=== PATIENT | female | born 1945 | race Caucasian/White ===

== ENCOUNTER 2019-03-20 00:59 | Inpatient (IN) | payer MEDICARE, MEDICAID ==
[2019-03-20] VITALS (8 sets, daily range): BP systolic 112–156; BP diastolic 49–86
[~2019-03-20] VITALS: Ht 160 cm; Wt 130.2 kg
[2019-03-20] MEDS: ALBUTEROL (0.083%) 2.5MG/3ML NEB HHN SCH ×3 (01:15→01:45)
[2019-03-20] MEDS ORDERED: METHYLPREDNISOLONE SOD SUCC 125 MG/2 ML VIAL IV STA (01:20)
[2019-03-20] MEDS ORDERED: ONDANSETRON HCL 4MG/2ML INJ IV STA (01:20)
[2019-03-20] MEDS ORDERED: IPRATROPIUM BROMIDE (0.02%) 0.5MG/2.5ML NEB HHN STA (01:20)
[2019-03-20 02:29] LABS: CHLORIDE 98 mEq/L (98-107)
[2019-03-20 03:10] LABS: BG BASE EXCESS 1.9 mmol/L (-2.0-2.0); BG BILEVEL POS AIRWAY PRESSURE 18/5; BG CARBOXYHEMOGLOBIN 0.7 % (0.5-1.5); BG DEOXYHEMOGLOBIN 3.8 % (0.0-5.0); BG FRACTION INSPIRED OXYGEN 50; BG METHEMOGLOBIN 0.4 % (0.0-1.5); BG OXYGEN SATURATION 96.2 % (92.0-98.5); BG OXYHEMOGLOBIN 95.1 % (94.0-97.0); BG PCO2 55.6 mmHg (35.0-45.0); BG PH 7.335 (7.350-7.450); BG PO2 87.6 mmHg (75.0-100.0); BG SAMPLE SITE RIGHT RADIAL; BG TOTAL HEMOGLOBIN 14.3 g/dL (12.0-18.0); BG VENT MODE MASK - BIPAP; BG VENT RATE 18 set
[2019-03-20 03:10] LABS: BASOPHILS % 0.5 % (0.0-2.0); EOSINOPHILS % 1.5 % (0.0-5.0); HEMATOCRIT. 40.9 % (36.0-48.0); HEMOGLOBIN. 13.6 g/dL (12.0-16.0); LYMPHOCYTES % 7.6 % (20.0-50.0); MEAN CORPUSCULAR HEMOGLOBIN 30.7 pg (28.0-32.0); MEAN CORPUSCULAR VOLUME 92.2 fL (81.0-99.0); MEAN PLATELET VOLUME 7.5 fl (7.4-10.4); MONOCYTES % 8.3 % (2.0-8.0); NEUTROPHILS % 82.1 % (40.0-76.0); PLATELET 267 x1000/uL (130-400); RED BLOOD CELL COUNT 4.43 mill/uL (4.2-5.4)
[2019-03-20] MEDS ORDERED: MORPHINE SULFATE 4 MG/ML CPJ (NOT FOR IM USE) IV ONE (05:30)
[2019-03-20] MEDS ORDERED: DOCUSATE SODIUM 100MG CAPSULE PO PRN (06:45)
[2019-03-20] MEDS ORDERED: CLONIDINE 0.1MG TABLET PO PRN (06:45)
[2019-03-20] MEDS ORDERED: LEVOFLOXACIN 500MG PREMIX 100 ML IV SCH (06:45)
[2019-03-20] MEDS ORDERED: ENOXAPARIN 40MG/0.4ML SYR SUBCUT SCH (06:45)
[2019-03-20] MEDS ORDERED: HYDROCODONE/ACETAMINOPHEN 5/325MG TABLET PO PRN (06:45)
[2019-03-20] MEDS ORDERED: GUAIFENESIN 200MG/10ML SUGAR FREE UDC PO PRN (06:45)
[2019-03-20] MEDS: LORAZEPAM 2MG/ML CPJ IV PRN ×4 (07:31→21:24)
[2019-03-20] MEDS: ENOXAPARIN 40MG/0.4ML SYR SUBCUT SCH ×2 (11:18→21:24)
[2019-03-20] MEDS: AMLODIPINE 10MG TABLET PO SCH (11:18)
[2019-03-20] MEDS: IPRATROPIUM/ALBUTEROL 0.5-3(2.5)MG/3ML NEB INH SCH ×3 (11:53→20:08)
[2019-03-20] MEDS: FUROSEMIDE 20MG/2ML VIAL IVP SCH (13:26)
[2019-03-20] MEDS: LEVOFLOXACIN 500MG PREMIX 100 ML IV SCH (13:27)
[2019-03-20 13:30] LABS: BG BASE EXCESS 3.3 mmol/L (-2.0-2.0); BG BILEVEL POS AIRWAY PRESSURE 18/5; BG CARBOXYHEMOGLOBIN 0.9 % (0.5-1.5); BG DEOXYHEMOGLOBIN 2.4 % (0.0-5.0); BG FRACTION INSPIRED OXYGEN 50; BG HCO3 ACT 30.6 mmol/L (22.0-26.0); BG METHEMOGLOBIN 0.4 % (0.0-1.5); BG OXYGEN SATURATION 97.6 % (92.0-98.5); BG OXYHEMOGLOBIN 96.3 % (94.0-97.0); BG PCO2 58.5 mmHg (35.0-45.0); BG PH 7.337 (7.350-7.450); BG PO2 97.8 mmHg (75.0-100.0); BG SAMPLE SITE RIGHT RADIAL; BG TOTAL HEMOGLOBIN 14.1 g/dL (12.0-18.0); BG VENT MODE MASK - BIPAP; BG VENT RATE 18 set
[2019-03-20] MEDS: METHYLPREDNISOLONE SOD SUCC 40 MG/ML VIAL IV SCH ×2 (16:16→21:24)
[2019-03-20] MEDS: MORPHINE SULFATE 2 MG/ML CPJ (NOT FOR IM USE) IV PRN (19:20)
[2019-03-20] MEDS: BUDESONIDE 0.5MG/2ML NEB HHN SCH (20:08)
[2019-03-21] VITALS (7 sets, daily range): BP systolic 108–137; BP diastolic 55–82
[2019-03-21] MEDS: IPRATROPIUM/ALBUTEROL 0.5-3(2.5)MG/3ML NEB INH PRN ×2 (00:39→17:01)
[2019-03-21 07:29] LABS: BASOPHILS % 0.1 % (0.0-2.0); HEMATOCRIT. 37.5 % (36.0-48.0); HEMOGLOBIN. 13.2 g/dL (12.0-16.0); LYMPHOCYTES % 7.5 % (20.0-50.0); MEAN CORPUSCULAR HEMOGLOBIN 32.1 pg (28.0-32.0); MEAN CORPUSCULAR VOLUME 91.4 fL (81.0-99.0); MEAN PLATELET VOLUME 7.4 fl (7.4-10.4); MONOCYTES % 4.8 % (2.0-8.0); NEUTROPHILS % 87.6 % (40.0-76.0); PLATELET 254 x1000/uL (130-400); RED CELL DISTRIBUTION WIDTH 13.9 % (11.6-14.6)
[2019-03-21 07:53] LABS: CHLORIDE 99 mEq/L (98-107)
[2019-03-21 08:03] LABS: HDL CHOLESTEROL 51 mg/dL (40-59)
[2019-03-21 08:04] LABS: LDL CHOLESTEROL 106 mg/dL (5-100)
[2019-03-21] MEDS: IPRATROPIUM/ALBUTEROL 0.5-3(2.5)MG/3ML NEB INH SCH ×3 (08:06→20:33)
[2019-03-21] MEDS: BUDESONIDE 0.5MG/2ML NEB HHN SCH ×2 (08:18→20:33)
[2019-03-21] MEDS: FUROSEMIDE 20MG/2ML VIAL IVP SCH (08:22)
[2019-03-21] MEDS: ENOXAPARIN 40MG/0.4ML SYR SUBCUT SCH ×2 (08:22→21:12)
[2019-03-21] MEDS: AMLODIPINE 10MG TABLET PO SCH (08:23)
[2019-03-21 11:16] LABS: T4 FREE 0.76 ng/dL (0.76-1.46)
[2019-03-21] MEDS: LEVOFLOXACIN 500MG PREMIX 100 ML IV SCH (11:39)
[2019-03-21] MEDS: LORAZEPAM 2MG/ML CPJ IV PRN ×2 (11:40→21:16)
[2019-03-21] MEDS: METHYLPREDNISOLONE SOD SUCC 40 MG/ML VIAL IV SCH ×2 (14:00→21:12)
[2019-03-21 18:34] LABS: CREATINE KINASE MB FRACTION 2.5 ng/mL (0.5-3.6)
[2019-03-22 00:14] LABS: CREATINE KINASE MB FRACTION 1.8 ng/mL (0.5-3.6)
[2019-03-22] MEDS: IPRATROPIUM/ALBUTEROL 0.5-3(2.5)MG/3ML NEB INH SCH ×2 (01:34→08:44)
[2019-03-22] MEDS: METHYLPREDNISOLONE SOD SUCC 40 MG/ML VIAL IV SCH ×3 (05:36→23:34)
[2019-03-22 06:34] LABS: CREATINE KINASE MB FRACTION 1.9 ng/mL (0.5-3.6)
[2019-03-22 08:00] VITALS: BP 141/74
[2019-03-22] MEDS: ENOXAPARIN 40MG/0.4ML SYR SUBCUT SCH ×2 (08:34→21:53)
[2019-03-22] MEDS: LORAZEPAM 2MG/ML CPJ IV PRN ×2 (08:35→15:36)
[2019-03-22] MEDS: FUROSEMIDE 20MG/2ML VIAL IVP SCH (08:35)
[2019-03-22] MEDS: AMLODIPINE 10MG TABLET PO SCH (08:41)
[2019-03-22] MEDS: BUDESONIDE 0.5MG/2ML NEB HHN SCH ×2 (08:44→21:26)
[2019-03-22 09:49] VITALS: BP 125/75
[2019-03-22 10:25] LABS: BG BASE EXCESS 6.8 mmol/L (-2.0-2.0); BG BILEVEL POS AIRWAY PRESSURE 15/5; BG CARBOXYHEMOGLOBIN 0.3 % (0.5-1.5); BG DEOXYHEMOGLOBIN 3.1 % (0.0-5.0); BG FRACTION INSPIRED OXYGEN 45; BG HCO3 ACT 34.7 mmol/L (22.0-26.0); BG METHEMOGLOBIN 0.2 % (0.0-1.5); BG OXYGEN SATURATION 96.9 % (92.0-98.5); BG OXYHEMOGLOBIN 96.4 % (94.0-97.0); BG PCO2 64.2 mmHg (35.0-45.0); BG PH 7.351 (7.350-7.450); BG PO2 92.8 mmHg (75.0-100.0); BG SAMPLE SITE RIGHT RADIAL; BG TOTAL HEMOGLOBIN 14.4 g/dL (12.0-18.0); BG VENT MODE MASK - BIPAP; BG VENT RATE 16 set
[2019-03-22] MEDS: LEVOFLOXACIN 500MG PREMIX 100 ML IV SCH (10:34)
[2019-03-22 12:00] VITALS: BP 123/59
[2019-03-22] MEDS: MORPHINE SULFATE 2 MG/ML CPJ (NOT FOR IM USE) IV PRN (12:08)
[2019-03-22 14:00] VITALS: BP 142/78
[2019-03-22] MEDS ORDERED: IPRATROPIUM/ALBUTEROL 0.5-3(2.5)MG/3ML NEB INH SCH (14:00)
[2019-03-22] MEDS: IPRATROPIUM/ALBUTEROL 0.5-3(2.5)MG/3ML NEB HHN SCH ×2 (15:23→21:26)
[2019-03-22 16:00] VITALS: BP 114/71
[2019-03-22 17:41] VITALS: BP 123/73
[2019-03-23] VITALS (8 sets, daily range): BP systolic 95–155; BP diastolic 54–80
[2019-03-23] MEDS: IPRATROPIUM/ALBUTEROL 0.5-3(2.5)MG/3ML NEB HHN SCH ×6 (00:35→21:48)
[2019-03-23] MEDS: MORPHINE SULFATE 2 MG/ML CPJ (NOT FOR IM USE) IV PRN ×2 (01:06→19:32)
[2019-03-23] MEDS: METHYLPREDNISOLONE SOD SUCC 40 MG/ML VIAL IV SCH ×3 (07:45→21:53)
[2019-03-23] MEDS: BUDESONIDE 0.5MG/2ML NEB HHN SCH ×2 (08:27→21:48)
[2019-03-23] MEDS: ENOXAPARIN 40MG/0.4ML SYR SUBCUT SCH ×2 (09:35→21:00)
[2019-03-23] MEDS: LORAZEPAM 2MG/ML CPJ IV PRN ×3 (09:36→22:16)
[2019-03-23] MEDS: AMLODIPINE 10MG TABLET PO SCH (09:36)
[2019-03-23] MEDS: FUROSEMIDE 20MG/2ML VIAL IVP SCH (09:36)
[2019-03-23] MEDS ORDERED: LIDOCAINE HCL 1% 20ML VIAL (Pyxis) INJ ONE (10:49)
[2019-03-23] MEDS: LEVOFLOXACIN 500MG TABLET PO SCH (12:11)
[2019-03-23 17:03] LABS: BG BASE EXCESS 11.4 mmol/L (-2.0-2.0); BG BILEVEL POS AIRWAY PRESSURE 15/5; BG CARBOXYHEMOGLOBIN 0.8 % (0.5-1.5); BG DEOXYHEMOGLOBIN 3.2 % (0.0-5.0); BG FRACTION INSPIRED OXYGEN 40; BG METHEMOGLOBIN 0.3 % (0.0-1.5); BG OXYGEN SATURATION 96.8 % (92.0-98.5); BG OXYHEMOGLOBIN 95.7 % (94.0-97.0); BG PCO2 64.6 mmHg (35.0-45.0); BG PH 7.399 (7.350-7.450); BG SAMPLE SITE RIGHT RADIAL; BG TOTAL HEMOGLOBIN 14.3 g/dL (12.0-18.0); BG VENT MODE MASK - BIPAP; BG VENT RATE 16 set
[2019-03-23 19:28] LABS: CHLORIDE 95 mEq/L (98-107)
[2019-03-23 19:34] LABS: BASOPHILS % 0.4 % (0.0-2.0); HEMOGLOBIN. 13.6 g/dL (12.0-16.0); LYMPHOCYTES % 9.7 % (20.0-50.0); MEAN CORPUSCULAR HEMOGLOBIN 31.4 pg (28.0-32.0); MEAN CORPUSCULAR VOLUME 92.4 fL (81.0-99.0); MEAN PLATELET VOLUME 7.7 fl (7.4-10.4); MONOCYTES % 9.7 % (2.0-8.0); NEUTROPHILS % 80.2 % (40.0-76.0); PLATELET 238 x1000/uL (130-400); RED BLOOD CELL COUNT 4.33 mill/uL (4.2-5.4); RED CELL DISTRIBUTION WIDTH 13.6 % (11.6-14.6)
[2019-03-23] MEDS ORDERED: KCL 20MEQ/100ML PREMIX 100 ML IV NR (23:30)
[2019-03-24] VITALS (12 sets, daily range): BP systolic 109–130; BP diastolic 58–75
[2019-03-24] MEDS: IPRATROPIUM/ALBUTEROL 0.5-3(2.5)MG/3ML NEB HHN SCH ×6 (00:26→21:33)
[2019-03-24] MEDS: MORPHINE SULFATE 2 MG/ML CPJ (NOT FOR IM USE) IV PRN ×2 (05:37→20:35)
[2019-03-24] MEDS: METHYLPREDNISOLONE SOD SUCC 40 MG/ML VIAL IV SCH ×3 (05:37→21:05)
[2019-03-24] MEDS: ENOXAPARIN 40MG/0.4ML SYR SUBCUT SCH ×2 (08:00→20:35)
[2019-03-24] MEDS: FUROSEMIDE 20MG/2ML VIAL IVP SCH (08:01)
[2019-03-24] MEDS: AMLODIPINE 10MG TABLET PO SCH (08:01)
[2019-03-24] MEDS: LORAZEPAM 2MG/ML CPJ IV PRN ×2 (09:24→14:28)
[2019-03-24] MEDS: LEVOFLOXACIN 500MG TABLET PO SCH (12:40)
[2019-03-24 17:23] LABS: HEMATOCRIT. 41.5 % (36.0-48.0); HEMOGLOBIN. 14.2 g/dL (12.0-16.0); MEAN CORPUSCULAR HEMOGLOBIN 31.7 pg (28.0-32.0); MEAN CORPUSCULAR VOLUME 92.7 fL (81.0-99.0); MEAN PLATELET VOLUME 7.6 fl (7.4-10.4); PLATELET 256 x1000/uL (130-400); RED BLOOD CELL COUNT 4.48 mill/uL (4.2-5.4); RED CELL DISTRIBUTION WIDTH 13.6 % (11.6-14.6)
[2019-03-24 17:30] LABS: CHLORIDE 95 mEq/L (98-107)
[2019-03-24] MEDS ORDERED: KCL 20MEQ/100ML PREMIX 100 ML IV NR (18:45)
[2019-03-24 18:58] LABS: PLATELET ESTIMATE NORMAL
[2019-03-24] MEDS: ONDANSETRON HCL 4MG/2ML INJ IV PRN (23:00)
[2019-03-25] VITALS (11 sets, daily range): BP systolic 104–131; BP diastolic 52–88
[2019-03-25] MEDS: MORPHINE SULFATE 2 MG/ML CPJ (NOT FOR IM USE) IV PRN ×2 (01:23→12:32)
[2019-03-25] MEDS: MAGNESIUM/ALUMINUM HYDROXIDE/SIMETHICONE 30ML UDC PO PRN ×2 (01:52→21:22)
[2019-03-25] MEDS: IPRATROPIUM/ALBUTEROL 0.5-3(2.5)MG/3ML NEB HHN SCH ×7 (02:27→23:53)
[2019-03-25] MEDS: METHYLPREDNISOLONE SOD SUCC 40 MG/ML VIAL IV SCH ×3 (05:01→21:22)
[2019-03-25] MEDS: ONDANSETRON HCL 4MG/2ML INJ IV PRN ×3 (05:01→21:22)
[2019-03-25] MEDS: LORAZEPAM 2MG/ML CPJ IV PRN ×3 (08:34→22:57)
[2019-03-25] MEDS: FUROSEMIDE 20MG/2ML VIAL IVP SCH (08:34)
[2019-03-25] MEDS: AMLODIPINE 10MG TABLET PO SCH (08:35)
[2019-03-25] MEDS: ENOXAPARIN 40MG/0.4ML SYR SUBCUT SCH ×2 (08:35→21:22)
[2019-03-25 09:22] LABS: BG BASE EXCESS 10.6 mmol/L (-2.0-2.0); BG CARBOXYHEMOGLOBIN 0.3 % (0.5-1.5); BG DEOXYHEMOGLOBIN 4.9 % (0.0-5.0); BG FRACTION INSPIRED OXYGEN 36; BG HCO3 ACT 38.2 mmol/L (22.0-26.0); BG METHEMOGLOBIN 0.2 % (0.0-1.5); BG OXYGEN SATURATION 95.1 % (92.0-98.5); BG OXYHEMOGLOBIN 94.6 % (94.0-97.0); BG PCO2 62.4 mmHg (35.0-45.0); BG PH 7.405 (7.350-7.450); BG PO2 73.4 mmHg (75.0-100.0); BG SAMPLE SITE RIGHT RADIAL; BG TOTAL HEMOGLOBIN 15.7 g/dL (12.0-18.0); BG VENT MODE NASAL CANNULA
[2019-03-25] MEDS: LEVOFLOXACIN 500MG TABLET PO SCH (12:35)
[2019-03-25] MEDS: ACETAMINOPHEN 325MG TABLET PO PRN (21:35)
[2019-03-26] VITALS (12 sets, daily range): BP systolic 84–119; BP diastolic 57–77
[2019-03-26] MEDS: IPRATROPIUM/ALBUTEROL 0.5-3(2.5)MG/3ML NEB HHN SCH ×5 (03:36→20:55)
[2019-03-26] MEDS: METHYLPREDNISOLONE SOD SUCC 40 MG/ML VIAL IV SCH (08:43)
[2019-03-26] MEDS: AMLODIPINE 10MG TABLET PO SCH (08:43)
[2019-03-26] MEDS: FUROSEMIDE 20MG/2ML VIAL IVP SCH (08:43)
[2019-03-26] MEDS: ENOXAPARIN 40MG/0.4ML SYR SUBCUT SCH ×2 (08:45→20:46)
[2019-03-26 09:09] LABS: BG BASE EXCESS 6.7 mmol/L (-2.0-2.0); BG CARBOXYHEMOGLOBIN 0.7 % (0.5-1.5); BG DEOXYHEMOGLOBIN 10.2 % (0.0-5.0); BG FRACTION INSPIRED OXYGEN 21; BG HCO3 ACT 33.7 mmol/L (22.0-26.0); BG METHEMOGLOBIN 0.3 % (0.0-1.5); BG OXYGEN SATURATION 89.7 % (92.0-98.5); BG OXYHEMOGLOBIN 88.8 % (94.0-97.0); BG PCO2 57.2 mmHg (35.0-45.0); BG PH 7.388 (7.350-7.450); BG PO2 57.5 mmHg (75.0-100.0); BG SAMPLE SITE LEFT RADIAL; BG TOTAL HEMOGLOBIN 15.1 g/dL (12.0-18.0); BG VENT MODE ROOM AIR
[2019-03-26 11:04] LABS: HEMATOCRIT. 44.6 % (36.0-48.0); HEMOGLOBIN. 15.1 g/dL (12.0-16.0); MEAN CORPUSCULAR HEMOGLOBIN 31.1 pg (28.0-32.0); MEAN CORPUSCULAR VOLUME 91.7 fL (81.0-99.0); MEAN PLATELET VOLUME 7.2 fl (7.4-10.4); PLATELET 249 x1000/uL (130-400); RED BLOOD CELL COUNT 4.87 mill/uL (4.2-5.4); RED CELL DISTRIBUTION WIDTH 13.6 % (11.6-14.6)
[2019-03-26] MEDS: ACETAMINOPHEN 325MG TABLET PO PRN ×2 (11:29→20:41)
[2019-03-26 11:33] LABS: CHLORIDE 94 mEq/L (98-107)
[2019-03-26] MEDS: LEVOFLOXACIN 500MG TABLET PO SCH (14:03)
[2019-03-26] MEDS: PREDNISONE 20MG TABLET PO SCH (14:03)
[2019-03-26] MEDS: LORAZEPAM 2MG/ML CPJ IV PRN (14:14)
[2019-03-26] MEDS: ONDANSETRON HCL 4MG/2ML INJ IV PRN ×2 (14:14→19:17)
[2019-03-26 15:47] LABS: PLATELET ESTIMATE NORMAL
[2019-03-26] MEDS ORDERED: ATORVASTATIN CALCIUM 20MG TABLET PO SCH (21:00)
[2019-03-27] VITALS: BP 137/86
[2019-03-27] MEDS: IPRATROPIUM/ALBUTEROL 0.5-3(2.5)MG/3ML NEB HHN SCH ×4 (00:43→11:57)
[2019-03-27 02:00] VITALS: BP 140/91
[2019-03-27 04:00] VITALS: BP 126/58
[2019-03-27 06:00] VITALS: BP 123/65
[2019-03-27] MEDS: LORAZEPAM 2MG/ML CPJ IV PRN ×2 (06:50→11:42)
[2019-03-27] MEDS: AMLODIPINE 10MG TABLET PO SCH (09:00)
[2019-03-27] MEDS: PREDNISONE 20MG TABLET PO SCH (09:01)
[2019-03-27] MEDS: FUROSEMIDE 20MG/2ML VIAL IVP SCH (09:01)
[2019-03-27] MEDS: ENOXAPARIN 40MG/0.4ML SYR SUBCUT SCH (09:01)
[2019-03-27] MEDS: LEVOFLOXACIN 500MG TABLET PO SCH (12:16)
[2019-03-27 12:25] VITALS: BP 100/60
== END 2019-03-27 15:25 | DRG 291 ==
LOC: ER 00:59 → 5EST 05:07 → EDBEDREQTM 05:10 → EDBEDREQSVC 05:10 → EDBEDREQ 05:10 → SUPCPDRO 06:37 → ENRESERV 07:11 → 5EST 09:38
PROVIDERS: ADMIT Hospitalist; ATTEND Hospitalist
PROC: 5A09557 Assistance with Respiratory Ventilation, Greater than 96 Consecutive Hours, Continuous Positive Airway Pressure (ICD-10-PCS; 2019-03-20)
PROC: 05HM33Z Insertion of Infusion Device into Right Internal Jugular Vein, Percutaneous Approach (ICD-10-PCS; principal; 2019-03-23)
PROC: B543ZZA Ultrasonography of Right Jugular Veins, Guidance (ICD-10-PCS; 2019-03-23)
PROC: 5A09357 Assistance with Respiratory Ventilation, Less than 24 Consecutive Hours, Continuous Positive Airway Pressure (ICD-10-PCS; 2019-03-27)
DX: I11.0 Hypertensive heart disease with heart failure (principal); J96.22 Acute and chronic respiratory failure with hypercapnia; J44.1 Chronic obstructive pulmonary disease with (acute) exacerbation; E44.1 Mild protein-calorie malnutrition; E66.2 Morbid (severe) obesity with alveolar hypoventilation; E87.2 Acidosis; Z68.43 Body mass index [BMI] 50.0-59.9, adult; I50.41 Acute combined systolic (congestive) and diastolic (congestive) heart failure; E11.9 Type 2 diabetes mellitus without complications; E78.5 Hyperlipidemia, unspecified; F41.9 Anxiety disorder, unspecified; Z82.49 Family history of ischemic heart disease and other diseases of the circulatory system; Z88.8 Allergy status to other drugs, medicaments and biological substances; Z79.899 Other long term (current) drug therapy; Z90.49 Acquired absence of other specified parts of digestive tract; Z87.81 Personal history of (healed) traumatic fracture; Z87.891 Personal history of nicotine dependence
CPT/HCPCS: 36415; 36600; 71045; 71250; 76937; 80048; 80061; 82375; 82550; 82553; 82805; 83036; 83605; 83880; 84439; 84443; 84484; 85379; 93005; 93306; 93970; 94640; 94660; C1725; J1650; J1940; J1956; J2060; J2270; J2405; J2920; J2930; J3480; J3490; J7512; J7611; J7620; J7626

== ENCOUNTER 2019-08-16 13:10 | Inpatient (IN) | payer MEDICARE, MEDICAID ==
[~2019-08-16] VITALS: Ht 157.5 cm; Wt 155.6 kg
[~2019-08-16 13:10] MED LIST: LIDOCAINE HCL/PF 1% 2ML VIAL ONE
[2019-08-16] MEDS ORDERED: ALBUTEROL (0.083%) 2.5MG/3ML NEB HHN ONE (14:15)
[2019-08-16] MEDS ORDERED: DILTIAZEM HCL 5MG/ML 5ML VIAL IV ONE (14:15)
[2019-08-16] MEDS ORDERED: ASPIRIN 81MG TABLET PO ONE (14:15)
[2019-08-16] MEDS ORDERED: DILTIAZEM HCL 5MG/ML 10ML VIAL IV ONE (14:23)
[2019-08-16 14:29] LABS: HEMATOCRIT. 40.4 % (36.0-48.0); HEMOGLOBIN. 13.5 g/dL (12.0-16.0); MEAN CORPUSCULAR HEMOGLOBIN 29.6 pg (28.0-32.0); MEAN CORPUSCULAR VOLUME 88.8 fL (81.0-99.0); MEAN PLATELET VOLUME 7.3 fl (7.4-10.4); PLATELET 248 x1000/uL (130-400); RED BLOOD CELL COUNT 4.55 mill/uL (4.2-5.4); RED CELL DISTRIBUTION WIDTH 15.4 % (11.6-14.6)
[2019-08-16 14:31] LABS: BG CARBOXYHEMOGLOBIN 0.8 % (0.5-1.5); BG DEOXYHEMOGLOBIN 1.5 % (0.0-5.0); BG FRACTION INSPIRED OXYGEN 50; BG HCO3 ACT 34.6 mmol/L (22.0-26.0); BG METHEMOGLOBIN 0.3 % (0.0-1.5); BG OXYGEN SATURATION 98.5 % (92.0-98.5); BG OXYHEMOGLOBIN 97.4 % (94.0-97.0); BG PCO2 61.5 mmHg (35.0-45.0); BG PH 7.368 (7.350-7.450); BG PO2 141.5 mmHg (75.0-100.0); BG SAMPLE SITE RIGHT RADIAL; BG TOTAL HEMOGLOBIN 14.7 g/dL (12.0-18.0)
[2019-08-16 14:36] LABS: CHLORIDE 96 mEq/L (98-107)
[2019-08-16] MEDS ORDERED: METHYLPREDNISOLONE SOD SUCC 125 MG/2 ML VIAL IV ONE (14:45)
[2019-08-16 14:53] LABS: PLATELET ESTIMATE NORMAL
[2019-08-16] MEDS ORDERED: DOCUSATE SODIUM 100MG CAPSULE PO PRN (16:00)
[2019-08-16] MEDS ORDERED: IPRATROPIUM/ALBUTEROL 0.5-3(2.5)MG/3ML NEB NEB PRN (16:00)
[2019-08-16] MEDS ORDERED: IPRATROPIUM/ALBUTEROL 0.5-3(2.5)MG/3ML NEB NEB SCH (16:00)
[2019-08-16] MEDS ORDERED: GUAIFENESIN 200MG/10ML SUGAR FREE UDC PO PRN (16:00)
[2019-08-16] MEDS ORDERED: CLONIDINE 0.1MG TABLET PO PRN (16:00)
[2019-08-16] MEDS ORDERED: DILTIAZEM HCL 5MG/ML 5ML VIAL IV PRN (16:15)
[2019-08-16] MEDS ORDERED: MORPHINE SULFATE 2 MG/ML CPJ (NOT FOR IM USE) IV PRN (16:22)
[2019-08-16] MEDS ORDERED: MORPHINE SULFATE 4 MG/ML CPJ (NOT FOR IM USE) IV PRN (17:00)
[2019-08-16] MEDS ORDERED: METHYLPREDNISOLONE SOD SUCC 125 MG/2 ML VIAL IV NR (17:30)
[2019-08-16] MEDS: ONDANSETRON HCL 4MG/2ML INJ IV PRN (17:35)
[2019-08-16] MEDS: AZITHROMYCIN 500 MG TABLET PO SCH (18:39)
[2019-08-16] MEDS ORDERED: LEVOFLOXACIN 500MG PREMIX 100 ML IV SCH (19:00)
[2019-08-16] MEDS ORDERED: CEFTRIAXONE 1 G PREMIX 50 ML IV SCH (19:00)
[2019-08-16 23:00] VITALS: BP 130/69
[2019-08-16 23:17] VITALS: BP 130/69
[2019-08-16] MEDS: METHYLPREDNISOLONE SOD SUCC 125 MG/2 ML VIAL IV SCH (23:48)
[2019-08-17] VITALS (12 sets, daily range): BP systolic 117–155; BP diastolic 67–105
[2019-08-17] MEDS: IPRATROPIUM/ALBUTEROL 0.5-3(2.5)MG/3ML NEB NEB SCH ×6 (00:15→21:10)
[2019-08-17] MEDS: MORPHINE SULFATE 2 MG/ML CPJ (NOT FOR IM USE) IV PRN ×4 (00:27→19:03)
[2019-08-17] MEDS: ACETYLCYSTEINE 100MG/ML 10% VIAL 4ML INH SCH ×3 (01:12→15:53)
[2019-08-17] MEDS: METHYLPREDNISOLONE SOD SUCC 125 MG/2 ML VIAL IV SCH ×4 (05:36→23:42)
[2019-08-17] MEDS: LEVOFLOXACIN 500MG PREMIX 100 ML IV SCH (05:43)
[2019-08-17 07:13] LABS: HEMATOCRIT. 41.2 % (36.0-48.0); HEMOGLOBIN. 13.3 g/dL (12.0-16.0); MEAN CORPUSCULAR HEMOGLOBIN 28.8 pg (28.0-32.0); MEAN CORPUSCULAR VOLUME 89.1 fL (81.0-99.0); MEAN PLATELET VOLUME 7.8 fl (7.4-10.4); PLATELET 254 x1000/uL (130-400); RED BLOOD CELL COUNT 4.62 mill/uL (4.2-5.4); RED CELL DISTRIBUTION WIDTH 14.8 % (11.6-14.6)
[2019-08-17] MEDS: BUDESONIDE 0.5MG/2ML NEB HHN SCH ×2 (07:47→21:09)
[2019-08-17 08:01] LABS: CHLORIDE 99 mEq/L (98-107)
[2019-08-17 08:12] LABS: LDL CHOLESTEROL 57 mg/dL (5-100)
[2019-08-17 08:13] LABS: HDL CHOLESTEROL 70 mg/dL (40-59)
[2019-08-17] MEDS: ASPIRIN 81MG EC TABLET PO SCH (08:34)
[2019-08-17] MEDS: ENOXAPARIN 40MG/0.4ML SYR SUBCUT SCH ×2 (08:34→20:20)
[2019-08-17] MEDS: AZITHROMYCIN 500 MG TABLET PO SCH (08:34)
[2019-08-17] MEDS ORDERED: TRAZ-251 PO (08:53)
[2019-08-17] MEDS ORDERED: ATOR20TA PO (08:53)
[2019-08-17] MEDS ORDERED: P20 MT (08:53)
[2019-08-17] MEDS ORDERED: LORA-250 PO (08:53)
[2019-08-17] MEDS ORDERED: INSU100V3 SUBCUT (08:53)
[2019-08-17] MEDS ORDERED: HYDR-4001 PO (08:53)
[2019-08-17] MEDS ORDERED: PANT40SU PO (08:53)
[2019-08-17] MEDS ORDERED: DOCU-150 MT (08:53)
[2019-08-17] MEDS ORDERED: AMLO10TA4 PO (08:53)
[2019-08-17] MEDS ORDERED: SERT50TA12 PO (08:53)
[2019-08-17] MEDS ORDERED: LEVO125T8 PO (08:53)
[2019-08-17] MEDS ORDERED: MEMA5TAB7 PO (08:53)
[2019-08-17] MEDS ORDERED: GABA-531 PO (08:53)
[2019-08-17] MEDS ORDERED: LACT10SO7 PO (08:53)
[2019-08-17 10:09] LABS: BG BASE EXCESS 5.8 mmol/L (-2.0-2.0); BG CARBOXYHEMOGLOBIN 0.3 % (0.5-1.5); BG DEOXYHEMOGLOBIN 3.1 % (0.0-5.0); BG FRACTION INSPIRED OXYGEN 40; BG HCO3 ACT 32.1 mmol/L (22.0-26.0); BG METHEMOGLOBIN 0.4 % (0.0-1.5); BG OXYGEN SATURATION 96.9 % (92.0-98.5); BG OXYHEMOGLOBIN 96.2 % (94.0-97.0); BG PCO2 53.4 mmHg (35.0-45.0); BG PH 7.397 (7.350-7.450); BG PO2 88.1 mmHg (75.0-100.0); BG SAMPLE SITE RIGHT RADIAL; BG VENT MODE MASK - BIPAP
[2019-08-17] MEDS: DILTIAZEM HCL 30MG TABLET PO SCH ×2 (18:37→23:43)
[2019-08-17 20:06] LABS: PLATELET ESTIMATE NORMAL
[2019-08-17] MEDS: LORAZEPAM 2MG/ML CPJ IV PRN (20:18)
[2019-08-17] MEDS: ONDANSETRON HCL 4MG/2ML INJ IV PRN (20:29)
[2019-08-17] MEDS: CEFTRIAXONE 1 G PREMIX 50 ML IV SCH (22:06)
[2019-08-18] VITALS (13 sets, daily range): BP systolic 117–144; BP diastolic 51–92
[2019-08-18] MEDS: MORPHINE SULFATE 2 MG/ML CPJ (NOT FOR IM USE) IV PRN ×4 (00:21→17:01)
[2019-08-18] MEDS: ACETYLCYSTEINE 100MG/ML 10% VIAL 4ML INH SCH ×3 (00:49→16:25)
[2019-08-18] MEDS: IPRATROPIUM/ALBUTEROL 0.5-3(2.5)MG/3ML NEB NEB SCH ×5 (00:49→20:35)
[2019-08-18] MEDS: METHYLPREDNISOLONE SOD SUCC 125 MG/2 ML VIAL IV SCH ×3 (05:09→17:00)
[2019-08-18] MEDS: DILTIAZEM HCL 30MG TABLET PO SCH ×3 (05:16→18:32)
[2019-08-18] MEDS: ONDANSETRON HCL 4MG/2ML INJ IV PRN (05:45)
[2019-08-18] MEDS: LORAZEPAM 2MG/ML CPJ IV PRN ×3 (05:45→21:02)
[2019-08-18 06:41] LABS: CHLORIDE 98 mEq/L (98-107)
[2019-08-18] MEDS: BUDESONIDE 0.5MG/2ML NEB HHN SCH ×2 (07:51→20:35)
[2019-08-18] MEDS: ENOXAPARIN 40MG/0.4ML SYR SUBCUT SCH ×2 (08:19→21:01)
[2019-08-18] MEDS: ASPIRIN 81MG EC TABLET PO SCH (08:19)
[2019-08-18] MEDS: LEVOFLOXACIN 500MG PREMIX 100 ML IV SCH (08:19)
[2019-08-18] MEDS: AZITHROMYCIN 500 MG TABLET PO SCH (08:21)
[2019-08-18 08:48] LABS: BG BASE EXCESS 7.2 mmol/L (-2.0-2.0); BG BILEVEL POS AIRWAY PRESSURE 15/5; BG CARBOXYHEMOGLOBIN 0.6 % (0.5-1.5); BG FRACTION INSPIRED OXYGEN 40; BG HCO3 ACT 34.1 mmol/L (22.0-26.0); BG METHEMOGLOBIN 0.5 % (0.0-1.5); BG OXYHEMOGLOBIN 94.9 % (94.0-97.0); BG PCO2 58.6 mmHg (35.0-45.0); BG PH 7.383 (7.350-7.450); BG PO2 81.5 mmHg (75.0-100.0); BG SAMPLE SITE RIGHT RADIAL; BG TOTAL HEMOGLOBIN 13.6 g/dL (12.0-18.0); BG VENT MODE MASK - BIPAP
[2019-08-18] MEDS: CEFTRIAXONE 1 G PREMIX 50 ML IV SCH (21:01)
[2019-08-18] MEDS: ZOLPIDEM TARTRATE 5MG TABLET PO PRN (21:02)
[2019-08-19] VITALS (14 sets, daily range): BP systolic 118–164; BP diastolic 69–100
[2019-08-19] MEDS: ACETYLCYSTEINE 100MG/ML 10% VIAL 4ML INH SCH ×4 (00:27→23:50)
[2019-08-19] MEDS: IPRATROPIUM/ALBUTEROL 0.5-3(2.5)MG/3ML NEB NEB SCH ×7 (00:28→23:50)
[2019-08-19] MEDS: DILTIAZEM HCL 30MG TABLET PO SCH ×5 (00:34→23:11)
[2019-08-19] MEDS: ONDANSETRON HCL 4MG/2ML INJ IV PRN ×2 (00:34→20:40)
[2019-08-19] MEDS: METHYLPREDNISOLONE SOD SUCC 125 MG/2 ML VIAL IV SCH ×3 (00:34→11:27)
[2019-08-19] MEDS: MORPHINE SULFATE 2 MG/ML CPJ (NOT FOR IM USE) IV PRN ×3 (00:35→20:41)
[2019-08-19] MEDS: LORAZEPAM 2MG/ML CPJ IV PRN ×3 (03:01→23:11)
[2019-08-19] MEDS: BUDESONIDE 0.5MG/2ML NEB HHN SCH ×2 (07:54→19:54)
[2019-08-19] MEDS: ASPIRIN 81MG EC TABLET PO SCH (08:03)
[2019-08-19] MEDS: AZITHROMYCIN 500 MG TABLET PO SCH (08:03)
[2019-08-19] MEDS: LEVOFLOXACIN 500MG PREMIX 100 ML IV SCH (08:04)
[2019-08-19] MEDS: ENOXAPARIN 40MG/0.4ML SYR SUBCUT SCH ×2 (08:04→20:23)
[2019-08-19 09:44] LABS: BG BASE EXCESS 9.2 mmol/L (-2.0-2.0); BG CARBOXYHEMOGLOBIN 0.8 % (0.5-1.5); BG DEOXYHEMOGLOBIN 6.6 % (0.0-5.0); BG FRACTION INSPIRED OXYGEN 36; BG HCO3 ACT 36.3 mmol/L (22.0-26.0); BG METHEMOGLOBIN 0.3 % (0.0-1.5); BG OXYGEN SATURATION 93.3 % (92.0-98.5); BG OXYHEMOGLOBIN 92.3 % (94.0-97.0); BG PCO2 59.6 mmHg (35.0-45.0); BG PH 7.402 (7.350-7.450); BG PO2 63.1 mmHg (75.0-100.0); BG SAMPLE SITE RIGHT RADIAL; BG TOTAL HEMOGLOBIN 14.4 g/dL (12.0-18.0); BG VENT MODE NASAL CANNULA
[2019-08-19] MEDS: METHYLPREDNISOLONE SOD SUCC 40 MG/ML VIAL IV SCH ×2 (14:30→20:24)
[2019-08-19] MEDS: CEFTRIAXONE 1 G PREMIX 50 ML IV SCH (20:23)
[2019-08-19] MEDS: ZOLPIDEM TARTRATE 5MG TABLET PO PRN (23:11)
[2019-08-20] VITALS (12 sets, daily range): BP systolic 111–167; BP diastolic 59–96
[2019-08-20] MEDS: IPRATROPIUM/ALBUTEROL 0.5-3(2.5)MG/3ML NEB NEB SCH ×5 (04:03→20:16)
[2019-08-20] MEDS: METHYLPREDNISOLONE SOD SUCC 40 MG/ML VIAL IV SCH (05:01)
[2019-08-20] MEDS: DILTIAZEM HCL 30MG TABLET PO SCH ×3 (05:01→18:25)
[2019-08-20] MEDS: MORPHINE SULFATE 2 MG/ML CPJ (NOT FOR IM USE) IV PRN ×3 (05:38→22:36)
[2019-08-20] MEDS: ONDANSETRON HCL 4MG/2ML INJ IV PRN (05:40)
[2019-08-20 06:23] LABS: HEMOGLOBIN. 13.3 g/dL (12.0-16.0); MEAN CORPUSCULAR HEMOGLOBIN 28.7 pg (28.0-32.0); MEAN CORPUSCULAR VOLUME 88.8 fL (81.0-99.0); MEAN PLATELET VOLUME 7.5 fl (7.4-10.4); PLATELET 254 x1000/uL (130-400); RED BLOOD CELL COUNT 4.62 mill/uL (4.2-5.4); RED CELL DISTRIBUTION WIDTH 14.8 % (11.6-14.6)
[2019-08-20 07:28] LABS: CHLORIDE 97 mEq/L (98-107)
[2019-08-20 07:33] LABS: BG BILEVEL POS AIRWAY PRESSURE 15/5; BG CARBOXYHEMOGLOBIN 0.3 % (0.5-1.5); BG DEOXYHEMOGLOBIN 3.2 % (0.0-5.0); BG FRACTION INSPIRED OXYGEN 40; BG HCO3 ACT 37.3 mmol/L (22.0-26.0); BG METHEMOGLOBIN 0.1 % (0.0-1.5); BG OXYGEN SATURATION 96.8 % (92.0-98.5); BG OXYHEMOGLOBIN 96.4 % (94.0-97.0); BG PCO2 61.9 mmHg (35.0-45.0); BG PH 7.398 (7.350-7.450); BG PO2 90.8 mmHg (75.0-100.0); BG SAMPLE SITE RIGHT RADIAL; BG TOTAL HEMOGLOBIN 14.3 g/dL (12.0-18.0); BG VENT MODE MASK - BIPAP; BG VENT RATE 16 set
[2019-08-20] MEDS: LEVOFLOXACIN 500MG PREMIX 100 ML IV SCH (08:33)
[2019-08-20] MEDS: ACETYLCYSTEINE 100MG/ML 10% VIAL 4ML INH SCH ×2 (08:40→15:48)
[2019-08-20] MEDS: ENOXAPARIN 40MG/0.4ML SYR SUBCUT SCH ×2 (08:49→20:46)
[2019-08-20] MEDS: AZITHROMYCIN 500 MG TABLET PO SCH (08:49)
[2019-08-20] MEDS: ASPIRIN 81MG EC TABLET PO SCH (08:49)
[2019-08-20] MEDS: LORAZEPAM 2MG/ML CPJ IV PRN ×2 (09:29→20:34)
[2019-08-20 10:48] LABS: BG BASE EXCESS 3.7 mmol/L (-2.0-2.0); BG CARBOXYHEMOGLOBIN 0.5 % (0.5-1.5); BG DEOXYHEMOGLOBIN 10.1 % (0.0-5.0); BG FRACTION INSPIRED OXYGEN 21; BG METHEMOGLOBIN 0.3 % (0.0-1.5); BG OXYGEN SATURATION 89.8 % (92.0-98.5); BG OXYHEMOGLOBIN 89.1 % (94.0-97.0); BG PCO2 52.1 mmHg (35.0-45.0); BG PH 7.378 (7.350-7.450); BG PO2 55.9 mmHg (75.0-100.0); BG SAMPLE SITE RIGHT RADIAL; BG TOTAL HEMOGLOBIN 14.1 g/dL (12.0-18.0); BG VENT MODE ROOM AIR
[2019-08-20 11:16] LABS: PLATELET ESTIMATE NORMAL
[2019-08-20] MEDS ORDERED: LIDOCAINE HCL/PF 1% 2ML VIAL ONE (11:49)
[2019-08-20] MEDS ORDERED: LIDOCAINE HCL 1% 20ML VIAL (Pyxis) INJ ONE (12:54)
[2019-08-20] MEDS: CEFTRIAXONE 1 G PREMIX 50 ML IV SCH (20:46)
[2019-08-21] VITALS (8 sets, daily range): BP systolic 110–145; BP diastolic 62–98
[2019-08-21] MEDS: DILTIAZEM HCL 30MG TABLET PO SCH ×3 (00:26→12:55)
[2019-08-21] MEDS: IPRATROPIUM/ALBUTEROL 0.5-3(2.5)MG/3ML NEB NEB SCH ×3 (00:34→09:56)
[2019-08-21] MEDS: ACETYLCYSTEINE 100MG/ML 10% VIAL 4ML INH SCH ×2 (00:34→09:55)
[2019-08-21] MEDS: ZOLPIDEM TARTRATE 5MG TABLET PO PRN (03:22)
[2019-08-21] MEDS: MORPHINE SULFATE 2 MG/ML CPJ (NOT FOR IM USE) IV PRN ×2 (04:53→12:22)
[2019-08-21] MEDS: LORAZEPAM 2MG/ML CPJ IV PRN (05:37)
[2019-08-21] MEDS ORDERED: PREDNISONE 20MG TABLET PO SCH (08:00)
[2019-08-21] MEDS: ENOXAPARIN 40MG/0.4ML SYR SUBCUT SCH (08:54)
[2019-08-21] MEDS: LEVOFLOXACIN 500MG PREMIX 100 ML IV SCH (08:54)
[2019-08-21] MEDS: AZITHROMYCIN 500 MG TABLET PO SCH (08:55)
[2019-08-21] MEDS: ASPIRIN 81MG EC TABLET PO SCH (08:55)
== END 2019-08-21 14:20 | DRG 871 ==
LOC: ER 13:10 → 5EST 15:06 → ENRESERV 19:54 → 5EST 22:33
PROVIDERS: ADMIT Hospitalist; ATTEND Hospitalist
PROC: 5A09357 Assistance with Respiratory Ventilation, Less than 24 Consecutive Hours, Continuous Positive Airway Pressure (ICD-10-PCS; 2019-08-17)
PROC: 5A09357 Assistance with Respiratory Ventilation, Less than 24 Consecutive Hours, Continuous Positive Airway Pressure (ICD-10-PCS; 2019-08-18)
PROC: 5A09357 Assistance with Respiratory Ventilation, Less than 24 Consecutive Hours, Continuous Positive Airway Pressure (ICD-10-PCS; 2019-08-19)
PROC: 05H733Z Insertion of Infusion Device into Right Axillary Vein, Percutaneous Approach (ICD-10-PCS; principal; 2019-08-20)
PROC: B54MZZA Ultrasonography of Right Upper Extremity Veins, Guidance (ICD-10-PCS; 2019-08-20)
PROC: 5A09357 Assistance with Respiratory Ventilation, Less than 24 Consecutive Hours, Continuous Positive Airway Pressure (ICD-10-PCS; 2019-08-20)
PROC: 5A09357 Assistance with Respiratory Ventilation, Less than 24 Consecutive Hours, Continuous Positive Airway Pressure (ICD-10-PCS; 2019-08-20)
DX: A41.9 Sepsis, unspecified organism (principal); J18.9 Pneumonia, unspecified organism; J96.22 Acute and chronic respiratory failure with hypercapnia; J44.1 Chronic obstructive pulmonary disease with (acute) exacerbation; E66.2 Morbid (severe) obesity with alveolar hypoventilation; E87.2 Acidosis; J44.0 Chronic obstructive pulmonary disease with (acute) lower respiratory infection; Z68.44 Body mass index [BMI] 60.0-69.9, adult; K21.9 Gastro-esophageal reflux disease without esophagitis; I48.91 Unspecified atrial fibrillation; I11.0 Hypertensive heart disease with heart failure; E78.00 Pure hypercholesterolemia, unspecified; I50.9 Heart failure, unspecified; Z87.891 Personal history of nicotine dependence; Z99.81 Dependence on supplemental oxygen; Z88.8 Allergy status to other drugs, medicaments and biological substances; Z79.899 Other long term (current) drug therapy; Z79.4 Long term (current) use of insulin
CPT/HCPCS: 36415; 36600; 71045; 76937; 80053; 80061; 82375; 82805; 82962; 83880; 84484; 85025; 93005; 93306; 93970; 94640; 94660; 94667; 97162; 99291; C1725; J0696; J1650; J1956; J2060; J2270; J2405; J2920; J2930; J3490; J7040; J7512; J7608; J7611; J7620; J7626; A4315